=== PATIENT | male | born 1985 | race Two or more races ===

== ENCOUNTER 2025-05-17 18:45 | Emergency (ER) | payer SELFPAY ==
--- NOTE | 2025-05-17 19:46 | PC.NURSE ---
Pt did not answer when name was called and was not found outside.
== END 2025-05-17 20:31 | disposition left against medical advice (07) ==
PROVIDERS: Emergency Provider Emergency Medicine
DX: Z53.21 Procedure and treatment not carried out due to patient leaving prior to being seen by health care provider (principal)
CPT/HCPCS: 99281